=== PATIENT | female | born 1970 | race Caucasian/White ===

== ENCOUNTER 2016-05-10 07:33 | Emergency (ER) | payer SELFPAY ==
[~2016-05-10] VITALS: Ht 177.8 cm; Wt 118.1 kg
[~2016-05-10 07:33] MED LIST: FURO1TAB93 OR; Z.0.NO CURRENT MEDS
[2016-05-10 07:39] VITALS: BP 135/87; PULSE 63; RESP 16; TEMP 98; O2SAT 99
[2016-05-10] MEDS: KETOROLAC TROMETHAMINE 60 MG/2 ML (IM) VIAL IM ONE ×2 (08:13→08:15)
[2016-05-10] MEDS ORDERED: TETANUS/DIPHTHERIA TOXOID ADULT 0.5 ML VIAL IM ONE (08:15)
--- NOTE | 2016-05-10 08:44 | PD ---
HPI Chief Complaint: Fall Time Seen by Provider: 07:58 Travel History International Travel<30 days: No Contact w/Intl Traveler<30days: No Traveled to known affect area: No History of Present Illness HPI 45-year-old female presents with trip and fall sustaining an abrasion to her right knee and having pain there as well as her right thumb and left great toe. She states she did not hit her head or black out. She denies other concurrent complaints. Quality of pain is sharp. Severity is moderate. She denies any blood thinner medications. Pain is worse with movement. She denies other modifying factors. PFSH Past Medical History Asthma: Yes Tetanus Vaccination: > 5 Years Influenza Vaccination: No ?: Not LMP: Tubal Tubal Ligation: Yes Past Surgical History Section: Yes (X's 2) Gynecologic Surgery: Yes Hysterectomy: Yes Other Surgery: Yes (LT. FOOT SX. 02/24) Social History Alcohol Use: No Tobacco Use: Yes (1 PPD) Substance Use: No Allergies-Medications (Allergen,Severity, Reaction): Coded Allergies: Beef (Verified Allergy, Severe, 05/10/16) Egg Allergy (Verified Allergy, Severe, 05/10/16) Tuna (Verified Allergy, Severe, 05/10/16) Uncoded Allergies: PECANS (Allergy, Severe, 06/25/10) [place] B[place] (Allergy, Severe, SOB, 06/25/10) Reported Meds & Prescriptions Reported Meds & Active Scripts Active No Active Prescriptions or Reported Medications Review of Systems Except as stated in HPI: all other systems reviewed are Neg Physical Exam Narrative General: 45 y/o patient in no apparent distress Skin: trauma noted to right knee with abrasion Eyes: Pupils equal NECK: no pain with palpation, nexus criteria negative Cardiovascular: Regular rate and rhythm Respiratory: Normal respiratory effort noted, clear to auscultation bilaterally Abdomen: soft, nontender, nondistended Back: No step-offs, midline spine nontender with palpation, mild tenderness across posterior bilateral pelvis Extremities: Pain with palpation of right thumb, right knee, left hallux, no lacerations over, neurovascularly intact, no pain with palpation of other joints Neuro: awake, alert, sensation and motor grossly intact Data Data Last Documented VS Vital Signs Date Time Temp Pulse Resp B/P Pulse Ox O2 Delivery O2 Flow Rate FiO2 05/10/16 10:30 57 16 144/78 94 Room Air 05/10/16 07:39 98.0 Orders Finger ([id number]) (05/10/16 08:01) Knee, Complete (4vws) (05/10/16 08:01) Toe (Min 2vws) (05/10/16 08:01) Pelvis, Ap Only (Routine) (05/10/16 08:01) Ketorolac Inj (Toradol Inj) (05/10/16 08:15) Tetanus/Diphtheria Tox Adult (Tetanus/Di (05/10/16 08:15) Ct Pelvis W/O Iv Contrast (05/10/16 ) MDM Medical Decision Making Medical Screen Exam Complete: Yes Emergency Medical Condition: Yes Medical Record Reviewed: Yes (past history confirmed) Interpretation(s) Last 24 hours Impressions Toe X-Ray 05/10/16 08 Signed Impressions: Service Date/Time: Tuesday, May 10, 2016 08:44 - CONCLUSION: No fracture or joint dislocation. Mynor Maier MD Knee X-Ray 05/10/16 08 Signed Impressions: Service Date/Time: Tuesday, May 10, 2016 08:31 - CONCLUSION: 1. Previous ACL repair. 2. No acute fracture or joint dislocation. Mynor Maier MD Finger X-Ray 05/10/16 08 Signed Impressions: Service Date/Time: Tuesday, May 10, 2016 08:44 - CONCLUSION: No fracture or joint dislocation. Mynor Maier MD Pelvis CT 05/10/16 0000 Signed Impressions: Service Date/Time: Tuesday, May 10, 2016 10:06 - CONCLUSION: No evidence of acute injury in the pelvis. Jb Navarro MD Differential Diagnosis Fracture, strain, sprain Narrative Course Will check x-ray imaging and dose with Toradol and reevaluate will add on ct pelvis and reeval ct negative, Patient denies any new complaints and states that they are feeling better. Patient happy with care, all questions answered. Patient knows that follow up is incumbent on them and to return to the emergency room immediately if new or worsening symptoms develop. Patient given strict return precautions, vitals reviewed and are normal, agrees to further workup as an outpatient. Diagnosis Primary Impression: Knee strain Qualified Code: S86.911A - Knee strain, right, initial encounter Patient Instructions: General Instructions Additional Instructions: alternate tylenol and motrin, return as needed, follow with primary this week Med/Other Pt SpecificInfo: No Change to Meds Scripts No Active Prescriptions or Reported Meds Disposition: 01 DISCHARGE HOME Condition: Stable Kelley Varner MD May 10, 2016 08:44
--- NOTE | 2016-05-10 09:12 | RADHPO ---
EXAM DATE/TIME: 05/10/2016 08:31 [facility] COMPARISON: No previous studies available for comparison. INDICATIONS : Right knee pain/abrasion post fall. MEDICAL HISTORY : None. SURGICAL HISTORY : section. Tubal ligation. Right ACL. Right meniscus. Left foot. Cervical disc ENCOUNTER: Initial ACUITY: 1 day PAIN SCORE: 6/10 LOCATION: Right knee FINDINGS: Four view examination of the right knee demonstrates no evidence of fracture or dislocation. Bony mi neralization is normal. The articular surfaces are intact. There is evidence of previous ACL repair. The suprapatellar soft tissues have a normal configuration. No joint effusion. CONCLUSION: 1. Previous ACL repair. 2. No acute fracture or joint dislocation. Mynor Maier MD on May 10, 2016 at 9:10 Board Certified Radiologist. This report was verified electronically.
--- NOTE | 2016-05-10 09:13 | RADHPO ---
EXAM DATE/TIME: 05/10/2016 08:44 [facility] COMPARISON: No previous studies available for comparison. INDICATIONS : Right hand/1st digit pain post fall. MEDICAL HISTORY : None. SURGICAL HISTORY : Tubal ligation. section. Right ACL. Right meniscus. Left foot. Cervical disc. ENCOUNTER: Initial ACUITY: 1 day PAIN SCORE: 6/10 LOCATION: Right hand/1st digit FINDINGS: Examination of the first digit of the right hand demonstrates no evidence of fracture or dislocation. No radiopaque foreign bodies are seen. The soft tissues are intact.CONCLUSION: No fracture or joint dislocation. Mynor Maier MD on May 10, 2016 at 9:11 Board Certified Radiologist. This report was verified electronically.
--- NOTE | 2016-05-10 09:14 | RADHPO ---
EXAM DATE/TIME: 05/10/2016 08:44 [facility] COMPARISON: No previous studies available for comparison. INDICATIONS : Left foot/great toe pain post fall. MEDICAL HISTORY : None. SURGICAL HISTORY : Tubal ligation. section. Right ACL. Right meniscus. Cervical disc. Left foot. ENCOUNTER: Initial ACUITY: 1 day PAIN SCORE: 6/10 LOCATION: Left foot/great toe FINDINGS: Examination of the first digit of the left foot demonstrates no evidence of fracture or dislocation. No radiopaque foreign bodies are seen. The soft tissues are intact. Chronic deformity of the fifth proximal phalanx. CONCLUSION: No fracture or joint dislocation. Mynor Maier MD on May 10, 2016 at 9:12 Board Certified Radiologist. This report was verified electronically.
--- NOTE | 2016-05-10 09:27 | RADHPO ---
EXAM DATE/TIME: 05/10/2016 08:34 [facility] COMPARISON: No previous studies available for comparison. INDICATIONS: Right pelvic/hip pain post fall. MEDICAL HISTORY: None. SURGICAL HISTORY: Tubal ligation. section. Right ACL. Right meniscus. Cervical disc. Left foot. ENCOUNTER: Initial ACUITY: 1 day PAIN SCORE: 6/10 LOCATION: Right hip FINDINGS: There are degenerative changes at the pubic symphysis. Alignment is anatomic about the right hip. H ip fracture is not appreciated. There is minimal deformity of the posterior superior margin of the ilium. I do not see a fracture. It is possible this could be an osteoporotic type compression fracture. Correlation is suggested. CONCLUSION: Questionable fracture of the posterior superior iliac wing. Correlation is suggested. No other frac ture is appreciated. Krunal Danielle MD FACR on May 10, 2016 at 9:20 Board Certified Radiologist. This report was verified electronically.
[2016-05-10 10:30] VITALS: BP 144/78; PULSE 57; RESP 16; O2SAT 94
--- NOTE | 2016-05-10 10:40 | RADHPO ---
EXAM DATE/TIME: 05/10/2016 10:06 [facility] COMPARISON: No previous studies available for comparison. INDICATIONS : Trauma. Fall. Right pelvic pain. ORAL CONTRAST: No oral contrast ingested. RADIATION DOSE: 30.76 CTDIvol (mGy) MEDICAL HISTORY : Asthma. SURGICAL HISTORY : Tubal ligation. Hysterectomy. section. ENCOUNTER: Initial ACUITY: 1 day PAIN SCALE: 6/10 LOCATION: Right pelvis TECHNIQUE: Volumetric scanning of the pelvis was performed. Using automated exposure control and adjustment of the mA and/or kV according to patient size, radiation dose was kept as low as reasonably achievable t o obtain optimal diagnostic quality images. FINDINGS: BOWEL/MESENTERY: The visualized small and large bowel demonstrate no acute abnormality. There is no free fluid. BLADDER: There is no wall thickening or mass. RETROPERITONEUM: There is no aneurysm or lymphadenopathy. REPRODUCTIVE: Uterus is surgically absent. INGUINAL: There is no lymphadenopathy or hernia. MUSCULOSKELETAL: Within normal limits for patient age. CONCLUSION: No evidence of acute injury in the pelvis. Jb Navarro MD on May 10, 2016 at 10:36 Board Certified Radiologist. This report was verified electronically.
== END 2016-05-10 11:13 | disposition home or self-care (01) ==
LOC: PHED 07:33
DX: S86.911A Strain of unspecified muscle(s) and tendon(s) at lower leg level, right leg, initial encounter (principal); S80.211A Abrasion, right knee, initial encounter; M25.551 Pain in right hip; R10.2 Pelvic and perineal pain; M79.644 Pain in right finger(s); M79.675 Pain in left toe(s); W01.0XXA Fall on same level from slipping, tripping and stumbling without subsequent striking against object, initial encounter; Z23 Encounter for immunization
CPT/HCPCS: 72170; 72192; 73140; 73564; 73660; 90471; 90714; J1885